=== PATIENT | male | born 1950 | race African-American/Black ===

== ENCOUNTER 2020-02-07 11:12 | Emergency (ER) | payer MEDICARE ==
[~2020-02-07] VITALS: Ht 175.3 cm; Wt 80.0 kg
[~2020-02-07 11:12] MED LIST: NAPR220T66 PO
[2020-02-07] MEDS ORDERED: GUAIFENESIN/CODEINE 100-10MG/5ML UDC PO ONE (12:30)
[2020-02-07] MEDS ORDERED: GUAIFENESIN-DM 200MG-20MG/10ML UDC PO SCH ×2 (12:30→12:45)
[2020-02-07] MEDS ORDERED: GUAIFENESIN-DM 200MG-20MG/10ML UDC PO ONE ×2 (12:30→12:45)
[2020-02-07 12:44] VITALS: BP 164/77
== END 2020-02-07 12:56 | disposition home or self-care (01) ==
LOC: ER 11:12
DX: I16.0 Hypertensive urgency (principal); E11.9 Type 2 diabetes mellitus without complications; F17.290 Nicotine dependence, other tobacco product, uncomplicated; Z87.01 Personal history of pneumonia (recurrent)
CPT/HCPCS: 93005; 99283

== ENCOUNTER 2020-04-27 12:33 | Inpatient (IN) | payer MEDICAID, MEDICARE ==
[~2020-04-27] VITALS: Ht 176.5 cm; Wt 68.7 kg
[~2020-04-27 12:33] MED LIST changes: +ALBU6.7H9 INH; +ASCO-339 MT; +ATROV INH; +LEVO750T21 MT; +METR500T PO; +ZINC220T4 MT
[2020-04-27] MEDS ORDERED: LEVOFLOXACIN 750MG PREMIX 150 ML IV ONE (13:30)
[2020-04-27] MEDS ORDERED: ASPIRIN 325MG EC TABLET PO ONE (13:45)
[2020-04-27 14:09] LABS: BG BASE EXCESS -7.3 mmol/L (-2.0-2.0); BG CARBOXYHEMOGLOBIN 0.3 % (0.5-1.5); BG DEOXYHEMOGLOBIN 0.7 % (0.0-5.0); BG FRACTION INSPIRED OXYGEN 100; BG HCO3 ACT 16.3 mmol/L (22.0-26.0); BG METHEMOGLOBIN 0.2 % (0.0-1.5); BG OXYGEN SATURATION 99.3 % (92.0-98.5); BG OXYHEMOGLOBIN 98.8 % (94.0-97.0); BG PO2 255.2 mmHg (75.0-100.0); BG SAMPLE SITE RIGHT BRACHIAL; BG TOTAL HEMOGLOBIN 9.5 g/dL (12.0-18.0); BG VENT MODE MASK - NRB
[2020-04-27 14:23] LABS: BASOPHILS % 0.4 % (0.0-2.0); CHLORIDE 98 mEq/L (98-107); EOSINOPHILS % 0.1 % (0.0-5.0); HEMATOCRIT. 29.1 % (42.0-52.0); HEMOGLOBIN. 9.5 g/dL (14.0-18.0); LYMPHOCYTES % 8.8 % (20.0-50.0); MEAN CORPUSCULAR HEMOGLOBIN 24.5 pg (28.0-32.0); MEAN CORPUSCULAR VOLUME 75.1 fL (80.0-94.0); MEAN PLATELET VOLUME 8.7 fl (7.4-10.4); MONOCYTES % 5.5 % (2.0-8.0); NEUTROPHILS % 85.2 % (40.0-76.0); PLATELET 376 x1000/uL (130-400); RED BLOOD CELL COUNT 3.88 mill/uL (4.7-6.1); RED CELL DISTRIBUTION WIDTH 20.3 % (11.6-14.6)
[2020-04-27 14:38] LABS: D-DIMER 20.28 mg/L FEU (<0.50); INR 1.1; PARTIAL THROMBOPLASTIN TIME 22.9 sec (23.4-31.0); PROTHROMBIN TIME 11.6 sec (9.6-11.0)
[2020-04-27] MEDS ORDERED: ENOXAPARIN 80MG/0.8ML SYR SUBCUT ONE (14:45)
[2020-04-27] MEDS ORDERED: VANCOMYCIN 1 G PREMIX 200 ML IV SCH (15:00)
[2020-04-27] MEDS ORDERED: PIPERACILLIN/TAZ 3.375G PREMIX 50 ML IV ONE (15:00)
[2020-04-27] MEDS ORDERED: NA PHOS,M-B/NA PHOS,DI-BA ENEMA 118ML PR PRN (16:15)
[2020-04-27] MEDS ORDERED: CLONIDINE 0.1MG TABLET PO PRN (16:15)
[2020-04-27] MEDS ORDERED: ACETAMINOPHEN 325MG TABLET PO PRN (16:15)
[2020-04-27] MEDS ORDERED: DOCUSATE SODIUM 100MG CAPSULE PO PRN (16:15)
[2020-04-27] MEDS ORDERED: ONDANSETRON HCL 4MG/2ML INJ IV PRN (16:15)
[2020-04-27] MEDS ORDERED: ACETAMINOPHEN 650MG SUPP PR PRN (16:15)
[2020-04-27] MEDS ORDERED: HYDROCODONE/ACETAMINOPHEN 5/325MG TABLET PO PRN (16:15)
[2020-04-27] MEDS ORDERED: DIPHENHYDRAMINE 50MG/ML VIAL IV PRN (16:15)
[2020-04-27] MEDS ORDERED: GUAIFENESIN 200MG/10ML SUGAR FREE UDC PO PRN (16:15)
[2020-04-27] MEDS ORDERED: DEXTROSE 50% WATER 50ML SYRINGE IV PRN (16:15)
[2020-04-27] MEDS ORDERED: LORAZEPAM 0.5MG TABLET PO PRN (16:15)
[2020-04-27] MEDS ORDERED: MAGNESIUM/ALUMINUM HYDROXIDE/SIMETHICONE 30ML UDC PO PRN (16:15)
[2020-04-27] MEDS ORDERED: IPRATROPIUM/ALBUTEROL 0.5-3(2.5)MG/3ML NEB NEB PRN (16:15)
[2020-04-27] MEDS ORDERED: IOHEXOL-350 100 ML BOTTLE ONE (16:58)
[2020-04-27] MEDS: PIPERACILLIN/TAZOBACTAM 3.375 G in DEXT 5% WATER 100 ML IV SCH ×2 (17:00→23:59)
[2020-04-27] MEDS ORDERED: DOXYCYCLINE HYCLATE 100MG CAPSULE PO NR (17:00)
[2020-04-27] MEDS: METHYLPREDNISOLONE SOD SUCC 40 MG/ML VIAL IV SCH (17:14)
[2020-04-27] MEDS ORDERED: IPRATROPIUM/ALBUTEROL 0.5-3(2.5)MG/3ML NEB NEB SCH (18:00)
[2020-04-27] MEDS: BLOOD SUGAR DIAGNOSTIC STRIP TEST SCH ×2 (18:28→21:21)
[2020-04-27] MEDS: INSULIN LISPRO 100 UNITS/ML SUBCUT SCH ×2 (19:11→21:26)
[2020-04-27] MEDS: VANCOMYCIN 750 MG PREMIX 150 ML IV SCH (20:33)
[2020-04-27] MEDS: FAMOTIDINE 20MG/2ML VIAL IV SCH (21:05)
[2020-04-27] MEDS ORDERED: PIPERACILLIN/TAZOBACTAM 3.375 G in DEXT 5% WATER 100 ML IV SCH (22:00)
[2020-04-27] MEDS: HEPARIN 25,000 UNITS PREMIX 500 ML IV SCH (22:14)
[2020-04-27 22:22] LABS: CLARITY URINE CLEAR (CLEAR); COLOR URINE YELLOW (YELLOW); KETONES URINE TRACE (NEGATIVE); LEUKOCYTE ESTERASE URINE NEGATIVE (NEGATIVE); NITRITE URINE NEGATIVE (NEGATIVE); OCCULT BLOOD URINE NEGATIVE (NEGATIVE); PROTEIN URINE TRACE (NEGATIVE); SPECIFIC GRAVITY URINE 1.039 (1.005-1.030)
[2020-04-27] MEDS ORDERED: HEPARIN 25,000 UNITS PREMIX 500 ML IV PRN (23:00)
[2020-04-27 23:51] LABS: CREATINE KINASE MB FRACTION 2.1 ng/mL (0.5-3.6)
[2020-04-28] VITALS (41 sets, daily range): BP systolic 124–175; BP diastolic 64–112
[2020-04-28] MEDS: METHYLPREDNISOLONE SOD SUCC 40 MG/ML VIAL IV SCH ×3 (01:06→17:27)
[2020-04-28] MEDS ORDERED: HEPARIN BOLUS PRN aPTT 37-44 IV (04:00)
[2020-04-28] MEDS ORDERED: HEPARIN BOLUS PRN aPTT <36 IV (04:00)
[2020-04-28 04:14] LABS: CHLORIDE 97 mEq/L (98-107)
[2020-04-28 04:21] LABS: LDL CHOLESTEROL 94 mg/dL (5-100)
[2020-04-28 04:22] LABS: HDL CHOLESTEROL 50 mg/dL (40-59)
[2020-04-28 04:23] LABS: CREATINE KINASE 76 IU/L (39-308); T4 FREE 1.42 ng/dL (0.76-1.46)
[2020-04-28 04:32] LABS: BASOPHILS % 0.3 % (0.0-2.0); HEMATOCRIT. 32.5 % (42.0-52.0); HEMOGLOBIN. 10.6 g/dL (14.0-18.0); LYMPHOCYTES % 8.2 % (20.0-50.0); MEAN CORPUSCULAR HEMOGLOBIN 23.9 pg (28.0-32.0); MEAN CORPUSCULAR VOLUME 73.4 fL (80.0-94.0); MEAN PLATELET VOLUME 8.5 fl (7.4-10.4); MONOCYTES % 3.2 % (2.0-8.0); NEUTROPHILS % 88.3 % (40.0-76.0); PLATELET 419 x1000/uL (130-400); RED BLOOD CELL COUNT 4.43 mill/uL (4.7-6.1); RED CELL DISTRIBUTION WIDTH 19.7 % (11.6-14.6)
[2020-04-28] MEDS: VANCOMYCIN 750 MG PREMIX 150 ML IV SCH ×3 (04:38→19:49)
[2020-04-28 05:08] LABS: HEPATITIS B SURFACE ANTIGEN NEGATIVE
[2020-04-28] MEDS: BLOOD SUGAR DIAGNOSTIC STRIP TEST SCH ×4 (06:24→20:25)
[2020-04-28] MEDS: PIPERACILLIN/TAZOBACTAM 3.375 G in DEXT 5% WATER 100 ML IV SCH ×4 (06:25→23:00)
[2020-04-28] MEDS: INSULIN LISPRO 100 UNITS/ML SUBCUT SCH ×4 (06:28→20:25)
[2020-04-28 07:36] LABS: BG CARBOXYHEMOGLOBIN 0.3 % (0.5-1.5); BG DEOXYHEMOGLOBIN 3.9 % (0.0-5.0); BG HCO3 ACT 23.5 mmol/L (22.0-26.0); BG METHEMOGLOBIN 0.3 % (0.0-1.5); BG OXYGEN SATURATION 96.1 % (92.0-98.5); BG OXYHEMOGLOBIN 95.5 % (94.0-97.0); BG PCO2 38.5 mmHg (35.0-45.0); BG PH 7.404 (7.350-7.450); BG PO2 87.6 mmHg (75.0-100.0); BG SAMPLE SITE RIGHT RADIAL; BG TOTAL HEMOGLOBIN 10.7 g/dL (12.0-18.0); BG VENT MODE NASAL CANNULA
[2020-04-28] MEDS: DOXYCYCLINE HYCLATE 100MG CAPSULE PO SCH ×2 (09:41→17:27)
[2020-04-28] MEDS: FAMOTIDINE 20MG/2ML VIAL IV SCH ×2 (09:41→20:04)
[2020-04-28] MEDS: DILTIAZEM HCL 30MG TABLET PO SCH ×3 (13:07→23:00)
[2020-04-28] MEDS ORDERED: LACTULOSE 20G/30ML UDC PO NR (13:30)
[2020-04-28] MEDS: MORPHINE SULFATE 2 MG/ML CPJ (NOT FOR IM USE) IV PRN ×2 (14:24→20:05)
[2020-04-28] MEDS: HEPARIN 25,000 UNITS PREMIX 500 ML IV SCH (17:43)
[2020-04-29] VITALS (20 sets, daily range): BP systolic 120–151; BP diastolic 64–94
[2020-04-29] MEDS: METHYLPREDNISOLONE SOD SUCC 40 MG/ML VIAL IV SCH ×3 (00:53→16:22)
[2020-04-29] MEDS: VANCOMYCIN 750 MG PREMIX 150 ML IV SCH ×2 (04:16→06:19)
[2020-04-29] MEDS: PIPERACILLIN/TAZOBACTAM 3.375 G in DEXT 5% WATER 100 ML IV SCH ×4 (04:23→23:07)
[2020-04-29] MEDS: DILTIAZEM HCL 30MG TABLET PO SCH ×4 (05:03→23:28)
[2020-04-29 05:43] LABS: HEMATOCRIT. 27.5 % (42.0-52.0); HEMOGLOBIN. 9.1 g/dL (14.0-18.0); MEAN CORPUSCULAR HEMOGLOBIN 24.3 pg (28.0-32.0); MEAN CORPUSCULAR VOLUME 73.4 fL (80.0-94.0); MEAN PLATELET VOLUME 8.8 fl (7.4-10.4); PLATELET 436 x1000/uL (130-400); RED BLOOD CELL COUNT 3.74 mill/uL (4.7-6.1); RED CELL DISTRIBUTION WIDTH 20.2 % (11.6-14.6)
[2020-04-29 05:58] LABS: CHLORIDE 100 mEq/L (98-107)
[2020-04-29] MEDS: INSULIN LISPRO 100 UNITS/ML SUBCUT SCH ×4 (06:13→21:22)
[2020-04-29] MEDS: BLOOD SUGAR DIAGNOSTIC STRIP TEST SCH ×4 (06:13→21:13)
[2020-04-29] MEDS: DOXYCYCLINE HYCLATE 100MG CAPSULE PO SCH ×2 (08:51→16:22)
[2020-04-29] MEDS: FAMOTIDINE 20MG/2ML VIAL IV SCH ×2 (08:51→21:20)
[2020-04-29 11:35] LABS: PLATELET ESTIMATE INCREASED
[2020-04-29] MEDS ORDERED: LACTULOSE 20G/30ML UDC PO NR (16:15)
[2020-04-29] MEDS: DOCUSATE SODIUM 100MG CAPSULE PO SCH (16:22)
[2020-04-29] MEDS: MORPHINE SULFATE 2 MG/ML CPJ (NOT FOR IM USE) IV PRN (16:23)
[2020-04-29] MEDS ORDERED: VANCOMYCIN 1 G PREMIX 200 ML IV SCH (18:00)
[2020-04-29] MEDS: ENOXAPARIN 80MG/0.8ML SYR SUBCUT SCH (18:24)
[2020-04-30] VITALS: BP 132/85
[2020-04-30 04:00] VITALS: BP 143/81
[2020-04-30] MEDS: MORPHINE SULFATE 2 MG/ML CPJ (NOT FOR IM USE) IV PRN ×2 (04:14→22:45)
[2020-04-30] MEDS: PIPERACILLIN/TAZOBACTAM 3.375 G in DEXT 5% WATER 100 ML IV SCH ×4 (05:11→22:47)
[2020-04-30] MEDS: METHYLPREDNISOLONE SOD SUCC 40 MG/ML VIAL IV SCH (05:11)
[2020-04-30] MEDS: DILTIAZEM HCL 30MG TABLET PO SCH ×3 (05:12→17:08)
[2020-04-30] MEDS: ENOXAPARIN 80MG/0.8ML SYR SUBCUT SCH ×2 (06:46→17:08)
[2020-04-30 06:50] LABS: HEMATOCRIT 29.2 % (42.0-52.0); HEMOGLOBIN 9.4 g/dL (14.0-18.0); MEAN CORPUSCULAR HEMOGLOBIN 23.9 pg (28.0-32.0); MEAN CORPUSCULAR VOLUME 73.9 fL (80.0-94.0); PLATELET 413 x1000/uL (130-400); RED BLOOD CELL COUNT 3.95 mill/uL (4.7-6.1); RED CELL DISTRIBUTION WIDTH 20.3 % (11.6-14.6)
[2020-04-30] MEDS: BLOOD SUGAR DIAGNOSTIC STRIP TEST SCH ×4 (07:13→21:30)
[2020-04-30 08:00] VITALS: BP 159/92
[2020-04-30 08:00] LABS: CHLORIDE 100 mEq/L (98-107)
[2020-04-30] MEDS: DOXYCYCLINE HYCLATE 100MG CAPSULE PO SCH ×2 (09:14→17:07)
[2020-04-30] MEDS: FAMOTIDINE 20MG/2ML VIAL IV SCH ×2 (09:14→21:30)
[2020-04-30] MEDS: INSULIN LISPRO 100 UNITS/ML SUBCUT SCH ×4 (09:14→21:00)
[2020-04-30] MEDS: DOCUSATE SODIUM 100MG CAPSULE PO SCH ×2 (09:15→17:07)
[2020-04-30 12:00] VITALS: BP 138/78
[2020-04-30 16:00] VITALS: BP 148/92
[2020-04-30] MEDS: LACTULOSE 20G/30ML UDC PO SCH ×2 (17:00→17:10)
[2020-04-30 20:00] VITALS: BP 146/84
[2020-05-01] VITALS: BP 148/70
[2020-05-01] MEDS: DILTIAZEM HCL 30MG TABLET PO SCH ×4 (00:09→18:00)
[2020-05-01 04:00] VITALS: BP 128/78
[2020-05-01] MEDS: PIPERACILLIN/TAZOBACTAM 3.375 G in DEXT 5% WATER 100 ML IV SCH ×4 (05:13→17:00)
[2020-05-01] MEDS: ENOXAPARIN 80MG/0.8ML SYR SUBCUT SCH ×2 (05:14→18:00)
[2020-05-01 06:43] LABS: CHLORIDE 101 mEq/L (98-107)
[2020-05-01] MEDS: BLOOD SUGAR DIAGNOSTIC STRIP TEST SCH ×3 (07:40→17:40)
[2020-05-01] MEDS: INSULIN LISPRO 100 UNITS/ML SUBCUT SCH ×3 (08:10→18:10)
[2020-05-01 08:49] LABS: BASOPHILS % 0.3 % (0.0-2.0); EOSINOPHILS % 0.1 % (0.0-5.0); HEMATOCRIT. 34.9 % (42.0-52.0); HEMOGLOBIN. 10.9 g/dL (14.0-18.0); LYMPHOCYTES % 9.3 % (20.0-50.0); MEAN CORPUSCULAR HEMOGLOBIN 23.9 pg (28.0-32.0); MEAN CORPUSCULAR VOLUME 76.7 fL (80.0-94.0); MEAN PLATELET VOLUME 8.7 fl (7.4-10.4); MONOCYTES % 9.3 % (2.0-8.0); PLATELET 447 x1000/uL (130-400); RED BLOOD CELL COUNT 4.55 mill/uL (4.7-6.1)
[2020-05-01] MEDS ORDERED: METHYLPREDNISOLONE SOD SUCC 40 MG/ML VIAL IV SCH (09:00)
[2020-05-01] MEDS: FAMOTIDINE 20MG/2ML VIAL IV SCH (09:25)
[2020-05-01] MEDS: DOXYCYCLINE HYCLATE 100MG CAPSULE PO SCH ×2 (09:26→17:00)
[2020-05-01] MEDS: DOCUSATE SODIUM 100MG CAPSULE PO SCH ×2 (09:26→17:00)
[2020-05-01 12:00] VITALS: BP 149/82
[2020-05-01] MEDS ORDERED: IPRA3AMP9 NEB (13:16)
[2020-05-01] MEDS ORDERED: BLOO-1465 MT (13:16)
[2020-05-01] MEDS ORDERED: DOXY150T5 PO (13:16)
[2020-05-01] MEDS ORDERED: LANC1COM2 MC (13:16)
[2020-05-01] MEDS ORDERED: AMOX-424 MT (13:16)
[2020-05-01] MEDS ORDERED: PRED10TA PO (13:16)
[2020-05-01] MEDS ORDERED: BLOO1KIT74 TP (13:16)
[2020-05-01] MEDS ORDERED: APIX5TAB MT (13:18)
[2020-05-01 16:00] VITALS: BP 138/86
[2020-05-01 16:50] VITALS: BP 138/86
== END 2020-05-01 18:34 | DRG 871 ==
LOC: ER 12:33 → UNDOADMIN 15:11 → MICUSO 15:11 → EDBEDREQ 15:28 → EDBEDREQSVC 15:28 → EDBEDREQTM 15:28 → SUPCPDRO 16:10 → 7WST 04-29 09:45
PROVIDERS: ADMIT Internal Medicine; ATTEND Internal Medicine
DX: A41.89 Other specified sepsis (principal); U07.1 COVID-19; J96.01 Acute respiratory failure with hypoxia; J12.89 Other viral pneumonia; I26.99 Other pulmonary embolism without acute cor pulmonale; I50.33 Acute on chronic diastolic (congestive) heart failure; D68.59 Other primary thrombophilia; E87.1 Hypo-osmolality and hyponatremia; I82.431 Acute embolism and thrombosis of right popliteal vein; E11.65 Type 2 diabetes mellitus with hyperglycemia; D64.9 Anemia, unspecified; F17.200 Nicotine dependence, unspecified, uncomplicated; I11.0 Hypertensive heart disease with heart failure; K80.20 Calculus of gallbladder without cholecystitis without obstruction; K59.00 Constipation, unspecified; T38.0X5A Adverse effect of glucocorticoids and synthetic analogues, initial encounter; R62.7 Adult failure to thrive; J44.9 Chronic obstructive pulmonary disease, unspecified; Z86.73 Personal history of transient ischemic attack (TIA), and cerebral infarction without residual deficits; Z79.2 Long term (current) use of antibiotics; Z79.899 Other long term (current) drug therapy; Z87.01 Personal history of pneumonia (recurrent); Y92.89 Other specified places as the place of occurrence of the external cause; Z79.01 Long term (current) use of anticoagulants; Z68.22 Body mass index [BMI] 22.0-22.9, adult
CPT/HCPCS: 36415; 36600; 71045; 71275; 74018; 80048; 80053; 80061; 80202; 81003; 82375; 82550; 82553; 82805; 82962; 83036; 83605; 83735; 83880; 84145; 84439; 84443; 84484; 85025; 85027; 85379; 85384; 85651; 86140; 86635; 86803; 86850; 86870; 86900; 87070; 87340; 87449; 93005; 93970; 99291; J1200; J1644; J1650; J1815; J1956; J2270; J2543; J2920; J3370; J3490; J7060; Q9967; U0003-CS